=== PATIENT | female | born 2000 | race Caucasian/White ===

== ENCOUNTER 2021-04-15 20:38 | Emergency (ER) | payer BC, SELFPAY ==
[2021-04-15 23:09] VITALS: BP 122/70; PULSE 109; RESP 18; TEMP 37.9; O2SAT 98; BMI 30.2
[2021-04-15 23:44] LABS: Adenovirus,PCR Not Detected (NotDetected); Bordetella Pertussis Not Detected (NotDetected); Chlamydophila Pneumoniae, PCR Not Detected (NotDetected); Coronavirus 229E Not Detected (NotDetected); Coronavirus NL63 Not Detected (NotDetected); Coronavirus OC43 Not Detected (NotDetected); Coronovirus HKU1,PCR Not Detected (NotDetected); Human Metapneumovirus Not Detected (NotDetected); Influenza A, PCR Not Detected (NotDetected); Influenza AH1, 2009 Not Detected (NotDetected); Influenza AH1, PCR Not Detected (NotDetected); Influenza AH3,PCR Not Detected (NotDetected); Influenza B, PCR Not Detected (NotDetected); Mycoplasma Pneumoniae, PCR Not Detected (NotDetected); Parainfluenza 1, PCR Not Detected (NotDetected); Parainfluenza 2, PCR Not Detected (NotDetected); Parainfluenza 3, PCR Not Detected (NotDetected); Parainfluenza 4, PCR Not Detected (NotDetected); Respiratory Syncytial Virus Not Detected (NotDetected); Rhinovirus/Enterovirus Not Detected (NotDetected)
--- NOTE | 2021-04-15 23:52 | HMH.EDUTC ---
[facility] Disposition Clinical Impression: Viral syndrome Disposition: Home, Self-Care Condition on Discharge: Good Instructions: DI for Viral Syndrome, DI for COVID-19 (Suspected or Confirmed ), Preventing the Spread of Coronavirus Discharge Instructions Additional Instructions: *Monitor Temp, Over the counter Motrin or Tylenol as directed/as needed Tylenol every 4 hours and Motrin every 6 hours (as long as your family doctor has told you that you can take it) for fever or pain. and straight to ER if unable to lower temp less than 101.0 after medication given *Warm salt water gargles may help to soothe the throat *Throat Lozenges *Warm fluids like tea with honey may help to soothe the throat *Sleep elevated *Humidifier/Vaporizer *Flonase 2 sprays in each nostril daily but be aware that it may take 2-3 days before you notice improvement *Bromfed may cause drowsiness. Know how it effects you (your child) before driving, caring for small child, or sending your child to school. Not other antihistamines/allergy medications while taking bromfed Your throat swab was sent for culture. Those results are typically sent to your primary care. Be sure to follow up in 2-3 days with your family doctor/primary care physician if no improvement so they can review those result and treat if necessary. If you don?t have a primary care doctor, I recommend you get one but in the mean time, you will have to return to a walk in clinic Follow up IMMEDIATELY for new or worsening symptoms or no Noticeable improvement over the next 48-72 hours. 911 for difficulty breathing or swallowing You were tested for today for COVID19 your test result should be back in the next 24-48 hours, you may call to the [facility] to see if your test results are back in the next 48 hours [phone] [facility] hours are 9am-9pm You was given a handout with instructions for Self Quarantine and Self isolation for while you wait on test results and what to do if they are positive If you are positive the Health Dept will be contacting you also Make sure to take your Vitamins Vit. C Vit D and Zinc if you can take them Prescriptions: Brompheniramine/Pseudoephed/Dm [Bromfed Dm Cough Syrup] 5 - 10 ml PO Q46H PRN #200 ml PRN Reason: Cough Transmission Status: Pending to [id number] Referrals: Provider,Referral, [Primary Care Provider] - As needed Forms: Work/School Release Time of Disposition: 23:55 Medical Decision Making - Greg Inquiry Pt receiving controlled substance: No Greg was queried for this patient: No Vital Signs: 04/15/21 23:09 Temperature 100.3 F H Temperature Source Oral Pulse Rate [Right] 109 H Respiratory Rate 18 Blood Pressure [Right Arm] 122/70 Blood Pressure Mean [Right Arm] 87 02 Sat by Pulse Oximetry 98 Oxygen Delivery Method Room Air - Lab Data Lab results reviewed: Yes: I reviewed the patient's lab results. Orders (Tests/Meds): ORDERS Category Date Time Status Full Resp Panel w/COVID ([facility]) Routine Lab 04/15/21 23:22 Received [facility] HPI - General Stated complaint: head congestion Time Seen by Provider: 04/15/21 23:53 Mode of Arrival: Family Vehicle Source of Information: Patient Limitations: No Limitations Description of Symptoms (Recalled from Triage Doc. by RN): Patient c/o chills, fever, back pain and generalized body aches/headaches. 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
[2021-04-16] VITALS: BP 117/71; PULSE 99; RESP 17; TEMP 37.7; O2SAT 98
[2021-04-16 09:44] LABS: Coronavirus 19, PCR Detected (NotDetected)
[2021-04-16 13:24] LABS: UTC Strep Screen (Rapid) Negative (Negative)
== END 2021-04-16 00:02 | disposition home or self-care (01) ==
PROVIDERS: Emergency Provider Nurse Practitioner
DX: U07.1 COVID-19 (principal); M54.5 Low back pain
CPT/HCPCS: 87581; 87633; 87798; 87880; 99202; G0463

== ENCOUNTER → 2021-11-23 14:19 | Outpatient (CLI) | payer BC, SELFPAY ==
[2021-11-23 15:32] LABS: HCG,Quantitative 370 mIU/ml (0-5.42)
== END ==
PROVIDERS: PCP Internal Medicine; Visit Provider Obstetrics & Gynecology
DX: Z34.90 Encounter for supervision of normal pregnancy, unspecified, unspecified trimester (principal)
CPT/HCPCS: 36415; 84702

== ENCOUNTER → 2021-11-25 13:05 | Outpatient (CLI) | payer BC, SELFPAY ==
[2021-11-25 14:38] LABS: HCG,Quantitative 847 mIU/ml (0-5.42)
== END ==
PROVIDERS: Visit Provider Obstetrics & Gynecology
DX: Z34.90 Encounter for supervision of normal pregnancy, unspecified, unspecified trimester (principal)
CPT/HCPCS: 84702

== ENCOUNTER → 2021-12-06 15:47 | Outpatient (CLI) | payer BC, SELFPAY ==
[2021-12-06 17:42] LABS: HCG,Quantitative 15571 mIU/ml (0-5.42)
== END ==
PROVIDERS: Visit Provider Obstetrics & Gynecology
DX: Z34.90 Encounter for supervision of normal pregnancy, unspecified, unspecified trimester (principal)
CPT/HCPCS: 36415; 84702

== ENCOUNTER → 2021-12-14 13:36 | Outpatient (CLI) | payer BC, SELFPAY ==
--- NOTE | 2021-12-14 13:40 | US_ITS ---
FINAL REPORT CLINICAL HISTORY: Dates FINDINGS: Sonographic images of the pelvis were obtained. A single, living intrauterine is noted. A yolk sac is present and measures 0.48 cm. [place] to rump length measures 1.27 cm which corresponds to 7 weeks 4 days gestation. Heartbeat is identified and measures 158 beats per minute. There is a complex cyst on the right ovary which may represent a corpus luteum cyst. The left ovary is within normal limits. IMPRESSION: Single, living, intrauterine gestation with 7 weeks 4 days ultrasound age. Reviewed, Interpreted and Dictated by Naveed Christopher MD Transcribed by Angely Tran Authenticated by Naveed Christopher MD on 12/14/2021 04:44:50 PM [facility]
[2021-12-14 14:44] LABS: Basophils % 0.4 % (0.1-2.0); Eosinophils # 0.1 K/mm3 (0.0-0.4); Hematocrit 42.8 % (37.0-47.0); Hemoglobin 14.4 g/dL (12.2-16.2); Lymphocytes # 1.7 K/mm3 (0.7-4.5); Lymphocytes % 23.1 % (10-50); Mean Corpuscular HGB Conc 33.7 g/dL (31.8-35.4); Mean Corpuscular Hemoglobin 30.7 pg (27.0-31.2); Mean Corpuscular Volume 91.1 fl (81-99); Mean Platelet Volume 8.5 fl (7.4-10.4); Monocytes # 0.4 K/mm3 (0.1-1.0); Monocytes % 5.4 % (1.7-9.3); Neutrophils # 5.1 K/mm3 (1.8-7.8); Neutrophils % 70.1 % (37.0-80.0); Platelet Count 321 K/mm3 (142-424); Red Blood Count 4.69 M/mm3 (4.20-5.40); Red Cell Distribution Width 12.7 % (11.5-17.5); White Blood Count 7.3 K/mm3 (4.8-10.8)
[2021-12-16 08:21] LABS: HIV Screen 4th Generation wRfx Non Reactive (Non Reactive); Hepatitis B Surface Antigen Negative (Negative); Hepatitis C Antibody 0.2 s/co ratio (0.0-0.9)
[2021-12-16 13:30] LABS: Rapid Plasma Reagin Ab Titer Non Reactive (NonRea<1:1)
[2021-12-17 07:08] LABS: Rubella Antibodies, IgG 1.06 index (Immune >0.99)
== END ==
PROVIDERS: PCP Internal Medicine; Visit Provider Obstetrics & Gynecology
DX: Z34.90 Encounter for supervision of normal pregnancy, unspecified, unspecified trimester (principal)
CPT/HCPCS: 36415; 76801; 85025; 86592; 86703; 86762; 86850; 87340; 87380; G0432